=== PATIENT | male | born 1985 | race Caucasian/White ===

== ENCOUNTER 2016-12-11 22:34 | Emergency (ER) | payer OTHER ==
[~2016-12-11] VITALS: Ht 180.3 cm; Wt 133.8 kg
[2016-12-11 22:52] VITALS: BP 153/88
[2016-12-11] MEDS ORDERED: CENTANY30 GM TP (23:04)
== END 2016-12-11 23:18 | disposition home or self-care (01) ==
LOC: ER 22:34
DX: S01.21XA Laceration without foreign body of nose, initial encounter (principal); F10.99 Alcohol use, unspecified with unspecified alcohol-induced disorder; Z88.0 Allergy status to penicillin; W54.8XXA Other contact with dog, initial encounter; Y93.89 Activity, other specified; Y92.89 Other specified places as the place of occurrence of the external cause; Y99.8 Other external cause status